=== PATIENT | male | born 1935 | race Caucasian/White ===

== ENCOUNTER 2017-03-27 19:38 | Emergency (ER) | payer MEDICARE, OTHER ==
--- NOTE | 2017-03-27 20:34 | ERNOTE ---
Upper Extremity HPI - Narrative Date of Service: 03/27/17 - General Extremities Pain Location: wrist: left - swelling and pain Source: patient, family Exam Limitations: no limitations - Immun/Allergies/Home Medications Immunizations: IMMUNIZATION HX Immunizations Up to Date Yes History of Influenza Vaccine Yes Hx Pneumococcal Vaccination Yes Allergies/Adverse Reactions: Allergies Allergy/AdvReac Type Severity Reaction Status Date / Time oxycodone Allergy Verified 03/27/17 19:49 Home Medications: HOME MEDICATIONS Albuterol Sulfate [Proair Hfa] 2 puff IH TID PRN 09/10/15 [Last Taken Unknown] Budesonide/Formoterol Fumarate [Symbicort 160-4.5 Mcg Inhaler] 2 puff IH BID [Last Taken Unknown] Celecoxib [Celebrex] 200 mg PO DAILY 09/10/15 [Last Taken Unknown] Esomeprazole Magnesium [Nexium] 40 mg PO DAILY 09/10/15 [Last Taken Unknown] Lactulose [Enulose] 30 ml PO BID #1800 ml 09/10/15 [Last Taken Unknown] Mucinex 09/10/15 [Last Taken Unknown] predniSONE [Prednisone] 10 mg PO DAILY #6 tablet 03/27/17 [Last Taken Unknown] - History of Present Illness Narrative: Pt did some yard work last Friday but did not have any symptoms. Friday he had some mild swelling in his wrist and took an "muscle relaxer" and it went down. Today he woke up with swelling and erythema of the wrist and has tried ice without improvement. Occurred: this morning Severity: moderate Method of Injury: Reports: no apparent injury Modifying Factors - (Worsens): Reports: movement Associated Symptoms: Reports: weakness - due to pain. Denies: tingling Other Injuries: Reports: none Review of Systems - Review of Systems Constitutional: Absent: recent illness EYE: Present: no symptoms reported ENT: Present: no symptoms reported Respiratory: Absent: shortness of breath Cardiology: Absent: chest pain Gastrointestinal/Abdominal: Present: no symptoms reported Genitourinary: Present: no symptoms reported Musculoskeletal: Present: See HPI Skin: Present: See HPI, change in color Neurological: Present: no symptoms reported Endocrine: Present: no symptoms reported Hematologic/Lymphatic: Present: no symptoms reported Psych: Present: no symptoms reported - Patient's Past Medical History Patient History - Medical: Arthritis, GERD, Other Patient History - Cardiac/Respiratory: COPD Patient History - Cancer: No Hx of Cancer Patient History - Surgical Procedures: Other Patient History - Other: None - Social History Living Situations: home Abuse History: No History of abuse Psych History: Hx of Depression Smoking Status: Former smoker Have you smoked in the past 12 months: No Do you dip or chew tobacco: No Alcohol Use: none Drug Use: none - Immunizations Immunizations Up to Date: Yes Hx Pneumococcal Vaccination: Yes History of Influenza Vaccine: Yes Physical Exam - Physical Exam General Appearance: Present: wd/wn, alert, no apparent distress Head Exam: Present: normal inspection, no evidence of injury Eye Exam: Normal inspection: bilateral Ears, Nose, Throat: Present: normal ENT inspection Neck: Present: normal inspection, nontender Respiratory: Present: no respiratory distress, no accessory muscle use Extremity Exam: Present: normal except - - left wrist erythematous and tender, ROM 5-10 Degrees with pain in any direction Neurological Exam: Present: alert, oriented, normal mood/affect, motor weakness - in hand that appears to be due to pain. Skin Exam: Present: other - erythema left wrist ED Progress - Results and Orders Patient's Lab Results:: I have reviewed the patient's lab results. Results and Orders: Laboratory Tests 03/27/17 03/27/17 03/27/17 20:45 20:45 20:45 WBC 9.9 Hgb 13.7 Hct 40.9 L Plt Count 267 ESR 29 H Sodium 136 Potassium 4.2 Chloride 100 Carbon Dioxide 27.2 BUN 26 H Creatinine 0.81 BUN/Creatinine Ratio 32.1 H Random Glucose 111 H Uric Acid 5.0 Calcium 8.4 C-Reactive Prot, Quant 2.5 H - Vital Signs Patient's Vital Signs:: I have reviewed the patient's vital signs. Vital Signs: Vital Signs 03/27/17 03/27/17 19:38 19:51 Temperature 37.5 C Pulse Rate 118 H Respiratory 22 H Rate Blood Pressure 132/72 152/88 O2 Sat by Pulse 95 Oximetry - X-Ray X-Ray #1 X-Ray: wrist - left Interpretation: Reviewed by me X-ray Comments: FINDINGS/IMPRESSION: 1. There is ulnar minus variant, and disproportionate sclerosis of the lunate. 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 Correlate clinically, and consider follow-up by routine MRI of the wrist, which may offer a more definitive diagnosis. 2. Lateral image demonstrates curvilinear lucency overlying the dorsal aspect of the triquetrum. Consider potential injury. 3. There is dysmorphic appearance of the proximal pole of the scaphoid, with increased density which could also represent avascular necrosis versus development variant. 4. Dysmorphic appearance of the distal radius/radial styloid, with adjacent soft tissue swelling noted. There is radiocarpal joint degenerative changes. There is also chondrocalcinosis projecting over the region of the triangular fibrocartilage as well as within the radiocarpal joint. Correlate clinically for calcium pyrophosphate deposition disease arthropathy. 5. Soft tissue swelling noted along the radial and dorsal aspects of the wrist. Consider possible tenosynovitis or tendinopathy, versus potential ligamentous injury. Also consider localized cellulitis/infection. 6. Incidental note of degenerative changes of the second and third metacarpophalangeal joints. Electronically signed by Brea Day M.D.. - Progress/Reassessment Chief Complaint: Hand Injury/Pain Progress:: Improved Departure Clinical Impression: Joint pain in fingers of left hand - Departure Disposition: Home Follow Up Needed Condition: Good Instructions: Arthritis Additional Instructions: See your regular doctor in 5-7 days if not improving. See your regular doctor in 3-4 weeks if your symptoms improve to repeat your uric acid level. Referrals: Lincoln Amaya MD [Primary Care Provider] - Prescriptions: predniSONE [Prednisone] 10 mg PO DAILY #6 tablet
[2017-03-27 20:46] LABS: Hematocrit 40.9 % (42.0-52.0); Hemoglobin 13.7 gm/dL (13.5-18.0); Mean Cell Volume 88.5 fl (78-100); Mean Corpuscular Hemoglobin 29.7 pg (27-31); Mean Corpuscular Hgb Conc 33.5 g/dl (32-36); Mean Platelet Volume 8.7 fl (6.0-9.5); Neutrophil # 7.2 K/mm3 (1.3-6.0); Neutrophil % 72.2 % (42-75.0); Platelet Count 267 K/mm3 (150-450); Red Blood Count 4.62 M/mm3 (4.7-6.0); Red Cell Distribution Width 14.9 % (11.5-14.0); White Blood Count 9.9 K/mm3 (4.0-10.5)
[2017-03-27 20:57] LABS: BUN/Creatinine Ratio 32.1 (9.0-21.6); CRP 2.5 mg/dL (0.0-0.9); Calcium * 8.4 mg/dL (7.9-10.9); Carbon Dioxide 27.2 mmol/L (24-32.6); Estimated Creat Clear 76.3; Potassium 4.2 mmol/L (3.4-4.6)
[2017-03-27] MEDS ORDERED: KETOROLAC TROMETHAMINE 60 MG/2 ML VIAL IM ONE (21:10)
[2017-03-27 21:15] VITALS: BP 142/88
[2017-03-27] MEDS ORDERED: predniSONE 20 MG TABLET PO ONE (21:58)
[2017-03-27] MEDS ORDERED: predniSONE 20 MG TABLET ONE (22:02)
== END 2017-03-27 22:00 | disposition home or self-care (01) ==
LOC: ER 19:38
DX: M25.542 Pain in joints of left hand (principal); Z87.891 Personal history of nicotine dependence

== ENCOUNTER 2020-01-08 20:37 | Observation (INO) ==
--- NOTE | 2020-01-08 20:46 | ERNOTE ---
Trauma/Assault HPI - General Stated Complaint: fall. rib pain Time Seen by Provider: 01/08/20 20:44 Source: patient, RN notes reviewed Exam Limitations: no limitations - Immun/Allergies/Home Medications Immunizations: IMMUNIZATION HX Immunizations Up to Date Yes History of Influenza Vaccine Yes Hx Pneumococcal Vaccination Yes Allergies/Adverse Reactions: Allergies oxycodone Allergy (Verified 01/08/20 20:45) Hives Home Medications: HOME MEDICATIONS Albuterol Sulfate [Proair Hfa] 2 puff INHALATION TID PRN 09/10/15 [Last Taken Unknown] Budesonide/Formoterol Fumarate [Symbicort 160-4.5 Mcg Inhaler] 2 puff INHALATION DAILY 09/10/15 [Last Taken Unknown] Celecoxib [Celebrex] 200 mg PO DAILY 09/10/15 [Last Taken Unknown] Esomeprazole Magnesium [Nexium] 20 mg PO DAILY 09/10/15 [Last Taken Unknown] Furosemide [Lasix] 20 mg PO DAILY 05/25/18 [Last Taken Unknown] guaifenesin 600 mg tablet, extended release 12 hr 600 mg PO TID tab 09/29/19 [Last Taken Unknown] Azithromycin 500 mg PO MOWEFR 01/08/20 [Last Taken Unknown] Ipratropium/Albuterol Sulfate [Iprat-Albut 0.5-3(2.5) mg/3 ml] 3 ml INHALATION BID 01/08/20 [Last Taken Unknown] Lactulose [Enulose] 40 ml PO DAILY PRN 01/08/20 [Last Taken Unknown] - History of Present Illness Narrative: Patient is 84-year-old white male with past medical history significant for severe COPD, chronic respiratory failure (on 3 L nasal cannula at home), reflux disease with Stephen plundoplication states he has had some increased dizziness last week, but today he was bending over to tend to his cat became very dizzy upon standing up and fell landing on wooden chair on his right rib cage. He had immediate pain which was unrelieved with Tylenol so came to the ER for further evaluation and treatment. He denies any recent fevers or chills, but has had slight increased shortness of breath or dyspnea on exertion x 48hrs, without any increase in his productive cough. He has no cardiac history and takes no medicines for hypertension. He does state he has persistent tachycardia due to his COPD. He has been taking his medicines as prescribed. He denies any increase in his reflux symptoms, black tarry stools or hematochezia. He does state he has had more leg cramps lately when walking, Denies increased lower extremity edema though. He denies any ill contacts or exposures. He denies any urinary symptoms. Location Occurred: Reports: home Pain Location: Reports: chest Method of Injury: Reports: fall Severity: moderate, severe Modifying Factors - (Improves): Reports: immobilization, rest Modifying Factors - (Worsens): Reports: movement, other - Deep breath Loss of Consciousness: Reports: no loss of consciousness Associated Symptoms - Trauma: Reports: dizziness, lightheadedness, shortness of breath. Denies: headache, confusion, seizures, slurred speech, trouble walking, vision changes, neck pain, chest pain, abdominal pain, nausea, muscle spasms Review of Systems - Review of Systems Constitutional: Absent: fever, chills EYE: Present: no symptoms reported ENT: Present: no symptoms reported Respiratory: Present: shortness of breath. Absent: cough, orthopnea, wheezing Cardiology: Present: chest pain, claudication. Absent: palpitations, syncope, edema Gastrointestinal/Abdominal: Absent: nausea, vomiting, diarrhea, abdominal pain Genitourinary: Present: no symptoms reported Musculoskeletal: Present: no symptoms reported Skin: Present: no symptoms reported Neurological: Present: dizziness/light-headedness, weakness. Absent: anxiety, depressed, emotional problems, headache Endocrine: Absent: excessive sweating, intolerance to heat, intolerance to cold, increased thirst, increased urine Hematologic/Lymphatic: Absent: easy bruising, easy bleeding Psych: Absent: anxiety, depressed Medical History (Last Updated 01/08/20 @ 23:14 by Richard Li MD) Chronic respiratory failure with hypoxia, on home O2 therapy on 3LNC at home Acid reflux Onset Date: Unknown Arthritis Onset Date: Unknown COPD (chronic obstructive pulmonary disease) Onset Date: Unknown Surgical History: Surgical History (Last Reviewed 01/08/20 @ 21:01 by Richard Li MD) History of Dixon fundoplication Onset Date: ~2005 [facility] History of back surgery Onset Date: Unknown [facility] History of cataract surgery Onset Date: Unknown bilateral History of prostate surgery Onset Date: Unknown Dr Coelho-"green light surgery" History of surgery on arm Onset Date: Unknown left ulnar History of throat surgery Onset Date: Unknown larynx Hx of cholecystectomy Onset Date: ~2006 [facility] Family History: Family History (Last Reviewed 01/08/20 @ 21:01 by Richard Li MD) Father , age 64-MVA Cancer liver ca-age 64 Mother , age 65-heart failure Heart disease Other No pertinent family history Social History: (Last Reviewed 01/08/20 @ 21:01 by Richard Li MD) Social History: Marital status: / household members: none number of children: 4 current occupational status: retired Service: Yes branch: [employer] dates of service: [id number] Tobacco: Smoking Status: Former smoker Alcohol: alcohol intake: never Substance Use: substance use type: does not use Dietary Habits: caffeine: Yes Personal Safety: victim of physical abuse: No victim of emotional abuse: No Physical Exam - Physical Exam General Appearance: Present: wd/wn, alert, mild distress, moderate distress, thin Head Exam: Present: normal inspection, no evidence of injury Eye Exam: Normal inspection: bilateral, PERRL: bilateral, EOMI: bilateral Ears, Nose, Throat: Present: normal except -, dry mucous membranes Neck: Present: normal inspection, supple Respiratory: Present: no respiratory distress, normal breath sounds, no accessory muscle use, lungs clear, chest tenderness - Tenderness over the fifth sixth and seventh ribs on the right., expiration (prolonged) Cardiovascular/Chest: Present: no murmur, normal peripheral pulses, tachycardia Gastrointestinal/Abdominal: Present: normal bowel sounds, nondistended, soft, no organomegaly, tenderness - Right upper quadrant Back Exam: Present: normal inspection Extremity Exam: Present: normal inspection, no edema, calf tenderness - Bilaterally Neurological Exam: Present: alert, oriented, normal mood/affect, no motor/sensory deficits Skin Exam: Present: normal color, warm/dry Detailed Trauma Exam Best Eye Response (Lokesh): (4) open spontaneously Best Verbal Response (Lokesh): (5) oriented Best Motor Response (Lokesh): (6) obeys commands Lokesh Total: 15 General Appearance: Present: alert Neurological Exam: Present: alert, oriented x 4, no motor/sensory deficits, motion pictures cartoonist II-XII nml as tested, no motor/sensory deficit Neck Exam: Present: non-tender, full range of motion - C-Spine cleared by: Neg history & exam - T, L-Spine cleared by: Neg hx and exam Progress - Results and Orders Patient's Lab Results:: I have reviewed the patient's lab results. Results and Orders: Laboratory Tests 01/08/20 20:55 WBC 16.1 H RBC 5.23 Hgb 14.8 Hct 45.9 MCV 87.8 MCH 28.3 MCHC 32.2 RDW 15.8 H Plt Count 376 MPV 8.6 Immature Gran % (Auto) 0.80 H Immature Gran # (Auto) 0.13 H Neutrophils % 80.7 H Lymphocytes % 9.4 L Monocytes % 8.7 Eosinophils % 0.2 Basophils % 0.2 Nucleated RBC % 0.0 Neutrophils # 13.0 H Lymphocytes # 1.51 Monocytes # 1.4 H Eosinophils # 0.0 Absolute Basophils 0.0 Laboratory Tests 01/08/20 20:55 Troponin I Less than 0.017 C-Reactive Prot, Quant 25.5 H D-dimer is 5.5, will get a CTA due to concerns for possible PE given his leg claudications and increased shortness of breath. Laboratory Tests 01/08/20 21:00 Sodium 132 Plasma Sodium 132 Potassium 4.4 Chloride 96 L Carbon Dioxide 29.4 Anion Gap 11.0 BUN 21 Creatinine 0.77 Est GFR (Non-Af Amer) 103 BUN/Creatinine Ratio 27.3 H Random Glucose 124 H Calcium 9.3 Calcium Adj for Albumin 9.9 Total Bilirubin 0.5 AST 21 ALT 27 Alkaline Phosphatase 143 Total Protein 8.2 Albumin 2.8 L Laboratory Tests 01/08/20 21:55 Urine Color Yellow Urine Appearance Clear Urine pH 5.5 Ur Specific [place] >=1.030 Urine Protein 30 H Urine Glucose (UA) Negative Urine Ketones 5 Urine Blood 5 H Urine Nitrate Negative Urine Bilirubin Negative Prot Sulfosalicylic Acd 1+ Urine Urobilinogen Normal Ur Leukocyte Esterase Negative Urine RBC 0-5 Urine WBC None seen Ur Epithelial Cells 0-5 Urine Bacteria None seen Specific gravity is 30 showing some dehydration patient. We will give him some IV fluids after his CTA for renal protection as well as hydration. Laboratory Tests 01/08/20 01/08/20 21:00 21:00 ESR 83 H D-Dimer 5.56 H - Vital Signs Patient's Vital Signs:: I have reviewed the patient's vital signs. Vital Signs: Vital Signs 01/08/20 20:42 Temperature 37.3 C Pulse Rate 119 H Respiratory Rate 27 H Blood Pressure 161/88 H O2 Sat by Pulse Oximetry 25 L - EKG EKG #1 EKG: NSR - Sinus tachycardia, no ST T wave changes EKG read: Interp. by me - X-Ray X-Ray #1 X-Ray: chest Interpretation: Interp. by me X-ray Comments: Patient has a right lower lobe infiltrate. Also has a right middle lobe consolidation concerning for a mass. X-Ray #2 X-Ray: ribs Interpretation: Interp. by me X-ray Comments: No acute fracture seen on rib x-ray - Progress/Reassessment Chief Complaint: Fall Progress Note-Subjective: 01/08/20 22:42 Patient continues to have pain so we will re-dose is IV morphine as he seems to be tolerating it well and it is helping his pain. 01/08/20 23:09 Patient states pain is controlled at this time. - Transfer of Care Expected Disposition: Admit Plan - Plan Plan: Patient with right rib tenderness concern for possible rib fracture. We will do x-ray of his ribs. Also patient is tachycardic with dizziness, with his leg pain and claudications will make sure he does not have a DVT contributing to this. He denies any worsening of his COPD symptoms but he is more hypoxic than normal here in the ER. Keep him on O2 to keep his sats greater than 88%. We will give him some morphine for the pain, start off with a 1 mg dose and increasing as needed. Also check a UA to be sure there is no urinary tract infection and a chest x-ray to be sure there is no pneumonia. Check a CMP to be sure no electrolyte issues and a CBC to make sure his hemoglobin is stable. No distinct rib fracture seen. Given his elevated white count and elevated C-reactive protein and right lower lobe consolidation, would be concerned about right lower lobe pneumonia. Will give him a dose of IV Rocephin and azithromycin here in the ER. Given patient's continued right chest wall pain, requiring IV morphine for control, his right lower lobe pneumonia and persistent tachycardia despite some IV fluids and pain control feel he needs to at least be in the hospital for observation. If his heart rate persists greater than 100 he actually would meet criteria for inpatient. I spoke with Dr. Ruby who is agreeable to accept the patient for admission to observation at this time. Appreciate his help and support. I did mention that there was a hilar growth that is causing some blockage of his right upper lobe blood flow. I did not discuss with him possibility of this being a cancer. His daughter was present at the time. I did mention to them that this will need further work-up on an outpatient basis. Departure Clinical Impression: Dizziness, Dehydration, Hilar mass Contusion of rib on right side Qualifiers: Encounter type: initial encounter Qualified Code(s): S20.211A - Contusion of right front wall of thorax, initial encounter RLL pneumonia Qualifiers: Pneumonia type: due to unspecified organism Qualified Code(s): J18.9 - Pneumonia, unspecified organism Chronic respiratory failure Qualifiers: Respiratory failure complication: hypoxia Qualified Code(s): J96.11 - Chronic respiratory failure with hypoxia - Departure Disposition: Still a patient Condition: Stable Referrals: Lincoln Amaya MD [Primary Care Provider] - Critical Care Time - Critical Care Critical Time Spent:: No
[2020-01-08] MEDS ORDERED: MORPHINE SULFATE 4 MG/ML SYRG IV PRN (20:56)
[2020-01-08 21:01] LABS: Hematocrit 45.9 % (42.0-52.0); Hemoglobin 14.8 gm/dL (13.5-18.0); Mean Cell Volume 87.8 fl (78-100); Mean Corpuscular Hemoglobin 28.3 pg (27-31); Mean Corpuscular Hgb Conc 32.2 g/dl (32-36); Mean Platelet Volume 8.6 fl (8-11.3); Neutrophil % 80.7 % (42-75.0); Platelet Count 376 K/mm3 (150-450); Red Blood Count 5.23 M/mm3 (4.7-6.0); Red Cell Distribution Width 15.8 % (11.5-14.0); White Blood Count 16.1 K/mm3 (4.0-10.5)
[2020-01-08] MEDS ORDERED: MORPHINE SULFATE 2 MG/ML DISP.SYRIN IV ONE ×2 (21:16→22:40)
[2020-01-08 21:21] LABS: Troponin I Less than 0.017 ng/mL (0.00-0.10)
[2020-01-08 21:26] LABS: CRP 25.5 mg/dL (0.0-0.9)
[2020-01-08] MEDS ORDERED: cefTRIAXone SODIUM 1,000 MG/100 ML BAG IV ONE (21:30)
[2020-01-08] MEDS ORDERED: AZITHROMYCIN 250 MG TABLET PO ONE (21:30)
[2020-01-08 22:01] LABS: Urine Bilirubin Negative (NEGATIVE); Urine Ketone 5 mg/dL (NEGATIVE); Urine Nitrite Negative (NEGATIVE); Urine Protein 30 mg/dL (NEGATIVE); Urine Specific Gravity >=1.030 SP.GR. (1.005-1.030); Urine Urobilinogen Normal (NORMAL); Urine pH 5.5 pH (5.0-7.0)
[2020-01-08 22:07] LABS: Urine Appearance Clear (CLEAR); Urine Bacteria None Seen; Urine Blood 5 /ul (NEGATIVE); Urine Color Yellow; Urine RBC 0-5 /hpf (0-5); Urine WBC None Seen /hpf (0-5)
[2020-01-08 22:08] LABS: Albumin * 2.8 gm/dl (3.4-5.0); BUN/Creatinine Ratio 27.3 (9.0-21.6); Bilirubin, Total 0.5 mg/dL (0.0-1.1); Ca. Corrected For Albumin 9.9 mg/dL (8.4-10.2); Calcium * 9.3 mg/dL (7.9-10.9); Carbon Dioxide 29.4 mmol/L (24-32.6); Potassium 4.4 mmol/L (3.4-4.6); Total Protein 8.2 gm/dL (6.2-8.2)
[2020-01-08] MEDS ORDERED: RINGER'S SOLUTION,LACTATED 1,000 ML IV ONE (22:13)
[2020-01-08] MEDS ORDERED: ACETAMINOPHEN 325 MG TABLET PO PRN (23:26)
[2020-01-08] MEDS ORDERED: ALBUTEROL SULFATE/IPRATROPIUM 3 ML NEBU IH SCH (23:30)
[2020-01-08] MEDS ORDERED: ACETYLCYSTEINE 200 MG/ML VIAL IH SCH (23:45)
[2020-01-09] MEDS: MORPHINE SULFATE 2 MG/ML DISP.SYRIN IV PRN ×2 (01:09→05:57)
[2020-01-09] MEDS ORDERED: ALBUTEROL SULFATE/IPRATROPIUM 3 ML NEBU IH ONE (01:37)
[2020-01-09] MEDS: ALBUTEROL SULFATE/IPRATROPIUM 3 ML NEBU IH SCH ×6 (01:39→10:05)
[2020-01-09] MEDS ORDERED: ACETYLCYSTEINE 200 MG/ML VIAL ONE (05:37)
[2020-01-09] MEDS: ACETYLCYSTEINE 200 MG/ML VIAL IH SCH ×2 (05:41→06:09)
[2020-01-09] MEDS ORDERED: MORPHINE SULFATE 2 MG/ML DISP.SYRIN IV PRN (07:15)
[2020-01-09] MEDS ORDERED: SENNOSIDES/DOCUSATE SODIUM 1 TAB TABLET PO SCH (09:00)
--- NOTE | 2020-01-09 12:00 | HPDIS ---
Chief Complaint - Chief Complaint Date of Service: 01/09/20 Time of Service: 11:14 Chief Complaint: Dizzy and fall History of Present Illness: Gus is an 84 yo male with Chronic respiratory failure on 3lpm of oxygen with activity secondary to COPD. He has been having dizzy episodes lately and had one of these while bending over. This caused him to fall and hit his ribs on a chair. He was having rib pain and presented to the [facility] ER. He had imaging that showed no rib fractures, but did show a right lung consolidation either pneumonia or lung mass on Chest CT. He had leukocytosis of 16k. He follows with Dr. Muhammad at [facility]. Medical History (Last Reviewed 01/09/20 @ 00:37 by Rula Stone RN) Chronic respiratory failure with hypoxia, on home O2 therapy on 3LNC at home Acid reflux Onset Date: Unknown Arthritis Onset Date: Unknown COPD (chronic obstructive pulmonary disease) Onset Date: Unknown Surgical History: Surgical History (Last Reviewed 01/09/20 @ 00:37 by Rula Stnoe RN) History of Dixon fundoplication Onset Date: ~2005 [facility] History of back surgery Onset Date: Unknown lumbar. Dr. Tong-once. [facility]-once History of cataract surgery Onset Date: Unknown bilateral History of prostate surgery Onset Date: Unknown Dr Coelho-"green light surgery" History of surgery on arm Onset Date: Unknown left ulnar History of throat surgery Onset Date: Unknown larynx Hx of cholecystectomy Onset Date: ~2006 [facility] Family History: Family History (Last Reviewed 01/09/20 @ 00:37 by Rula Stone RN) Father , age 64-MVA Cancer liver ca-age 64 Mother , age 65-heart failure Heart disease Other No pertinent family history Social History: (Last Reviewed 01/09/20 @ 00:37 by Rula Stone RN) Social History: Marital status: / household members: none number of children: 4 current occupational status: retired Service: Yes branch: [employer] dates of service: [id number] Tobacco: Smoking Status: Former smoker Alcohol: alcohol intake: never Substance Use: substance use type: does not use Dietary Habits: caffeine: Yes Personal Safety: victim of physical abuse: No victim of emotional abuse: No Review Of Systems (GEN) - Review of Systems Generalized/Overall Review: Present: Weakness. Absent: Chills, Fever EENTM: Present: No Symptoms Reported Respiratory: Present: Cough. Absent: Shortness of Breath Cardiac: Absent: Chest Pain, Edema, Palpitations Abdominal: Absent: Nausea, Vomiting Genitourinary: Present: No Symptoms Reported Musculoskeletal: Present: Other - rib pain Neurological: Present: No Symptoms Reported Skin: Present: No Symptoms Reported Immunizations: IMMUNIZATION HX Immunizations Up to Date Yes History of Influenza Vaccine Yes Hx Pneumococcal Vaccination Yes Allergies/Adverse Reactions: Allergies Allergy/AdvReac Type Severity Reaction Status Date / Time naproxen [From Aleve] Allergy Hives Verified 01/09/20 00:38 oxycodone Allergy Hives Verified 01/08/20 20:45 Home Medications: HOME MEDICATIONS Albuterol Sulfate [Proair Hfa] 2 puff INHALATION TID PRN 09/10/15 [Last Taken 01/08/20 17:00] Budesonide/Formoterol Fumarate [Symbicort 160-4.5 Mcg Inhaler] 2 puff INHALATION BID 09/10/15 [Last Taken 01/08/20 06:00] Celecoxib [Celebrex] 200 mg PO DAILY 09/10/15 [Last Taken 01/08/20 10:00] Esomeprazole Magnesium [Nexium] 20 mg PO DAILY 09/10/15 [Last Taken 01/08/20 06:00] Furosemide [Lasix] 20 mg PO DAILY PRN 05/25/18 [Last Taken Unknown] guaifenesin 600 mg tablet, extended release 12 hr 600 mg PO TID tab 09/29/19 [Last Taken 01/08/20 19:00] Azithromycin 500 mg PO MOWEFR 01/08/20 [Last Taken 01/07/20] Ipratropium/Albuterol Sulfate [Iprat-Albut 0.5-3(2.5) mg/3 ml] 3 ml INHALATION BID 01/08/20 [Last Taken 01/08/20 17:00] Lactulose [Enulose] 40 ml PO DAILY PRN 01/08/20 [Last Taken 01/08/20 06:00] Cefdinir [Omnicef] 300 mg PO Q12H #20 cap 01/09/20 [Last Taken Unknown] Exam - Exam Vital Signs: Vital Signs - Last Taken Temp 37.2 C 01/09/20 10:30 Pulse 107 H 01/09/20 10:30 Resp 24 H 01/09/20 10:30 BP 113/66 01/09/20 10:30 Pulse Ox 99 01/09/20 10:30 Constitutional: Present: Alert, Oriented x3, Cooperative ENT Exam: Present: hearing grossly normal Eye Exam: bilateral eye: normal inspection Respiratory: Present: lungs clear, normal breath sounds, no respiratory distress Cardiovascular/Chest: Present: regular rate, rhythm, no edema, no murmur Peripheral Pulses: radial (R): 2+, radial (L): 2+ Abdomen: Present: Normal bowel sounds, soft, nontender, nondistended Skin Exam: Present: normal color, warm/dry, no cyanosis Appearance: Present: appropriate appearance, appropriate insight Eye contact: Present: cooperative, good eye contact, normal speech Thoughts: Present: normal thought pattern, no apparent hallucination Diagnostic Studies: Abnormal Lab Results 01/08/20 01/08/20 01/08/20 Range/Units 20:55 20:55 21:00 WBC 16.1 H (4.0-10.5) K/mm3 RDW 15.8 H (11.5-14.0) % Immature Gran % (Auto) 0.80 H (0.001-0.429) % Immature Gran # (Auto) 0.13 H (0.000-0.0310) K/mm3 Neutrophils % 80.7 H (42-75.0) % Lymphocytes % 9.4 L (20-51) % Neutrophils # 13.0 H (1.3-6.0) K/mm3 Monocytes # 1.4 H (0.0-1.0) k/mm3 ESR (0-10) mm/hr D-Dimer 5.56 H (0.19-0.49) ug/mL Chloride (97-106) mmol/L BUN/Creatinine Ratio (9.0-21.6) Random Glucose (70-110) mg/dL C-Reactive Prot, Quant 25.5 H (0.0-0.9) mg/dL Albumin (3.4-5.0) gm/dl Urine Protein (NEGATIVE) mg/dL Urine Blood (NEGATIVE) /ul 01/08/20 01/08/20 01/08/20 Range/Units 21:00 21:00 21:55 WBC (4.0-10.5) K/mm3 RDW (11.5-14.0) % Immature Gran % (Auto) (0.001-0.429) % Immature Gran # (Auto) (0.000-0.0310) K/mm3 Neutrophils % (42-75.0) % Lymphocytes % (20-51) % Neutrophils # (1.3-6.0) K/mm3 Monocytes # (0.0-1.0) k/mm3 ESR 83 H (0-10) mm/hr D-Dimer (0.19-0.49) ug/mL Chloride 96 L (97-106) mmol/L BUN/Creatinine Ratio 27.3 H (9.0-21.6) Random Glucose 124 H (70-110) mg/dL C-Reactive Prot, Quant (0.0-0.9) mg/dL Albumin 2.8 L (3.4-5.0) gm/dl Urine Protein 30 H (NEGATIVE) mg/dL Urine Blood 5 H (NEGATIVE) /ul Microbiology 01/09/20 05:30 Sputum Culture - Preliminary Expectorate Sputum Laboratory Results WBC 16.1 K/mm3 (4.0-10.5) H 01/08/20 20:55 RBC 5.23 M/mm3 (4.7-6.0) 01/08/20 20:55 Hgb 14.8 gm/dL (13.5-18.0) 01/08/20 20:55 Hct 45.9 % (42.0-52.0) 01/08/20 20:55 MCV 87.8 fl (78-100) 01/08/20 20:55 MCH 28.3 pg (27-31) 01/08/20 20:55 MCHC 32.2 g/dl (32-36) 01/08/20 20:55 RDW 15.8 % (11.5-14.0) H 01/08/20 20:55 Plt Count 376 K/mm3 (150-450) 01/08/20 20:55 MPV 8.6 fl (8-11.3) 01/08/20 20:55 Immature Gran % (Auto) 0.80 % (0.001-0.429) H 01/08/20 20:55 Immature Gran # (Auto) 0.13 K/mm3 (0.000-0.0310) H 01/08/20 20:55 Neutrophils % 80.7 % (42-75.0) H 01/08/20 20:55 Lymphocytes % 9.4 % (20-51) L 01/08/20 20:55 Monocytes % 8.7 % (0.0-9) 01/08/20 20:55 Eosinophils % 0.2 % (0.0-3.0) 01/08/20 20:55 Basophils % 0.2 % (0.0-1.0) 01/08/20 20:55 Nucleated RBC % 0.0 k/mm3 (0-1) 01/08/20 20:55 Neutrophils # 13.0 K/mm3 (1.3-6.0) H 01/08/20 20:55 Lymphocytes # 1.51 k/mm3 (1.5-3.5) 01/08/20 20:55 Monocytes # 1.4 k/mm3 (0.0-1.0) H 01/08/20 20:55 Eosinophils # 0.0 k/mm3 (0.0-0.7) 01/08/20 20:55 Absolute Basophils 0.0 k/mm3 (0.0-0.1) 01/08/20 20:55 ESR 83 mm/hr (0-10) H 01/08/20 21:00 D-Dimer 5.56 ug/mL (0.19-0.49) H 01/08/20 21:00 Sodium 132 mmol/L (132-142) 01/08/20 21:00 Plasma Sodium 132 mmol/L (130-142) 01/08/20 21:00 Potassium 4.4 mmol/L (3.4-4.6) 01/08/20 21:00 Chloride 96 mmol/L (97-106) L 01/08/20 21:00 Carbon Dioxide 29.4 mmol/L (24-32.6) 01/08/20 21:00 Anion Gap 11.0 mmol/L (6.8-13.8) 01/08/20 21:00 BUN 21 mg/dL (6-23) 01/08/20 21:00 Creatinine 0.77 mg/dL (0.4-1.4) 01/08/20 21:00 Est GFR (Non-Af Amer) 103 mL/min (60-130) 01/08/20 21:00 BUN/Creatinine Ratio 27.3 (9.0-21.6) H 01/08/20 21:00 Random Glucose 124 mg/dL (70-110) H 01/08/20 21:00 Lactic Acid, Venous 1.2 mmol/L (0.4-2.0) 01/08/20 21:00 Calcium 9.3 mg/dL (7.9-10.9) 01/08/20 21:00 Calcium Adj for Albumin 9.9 mg/dL (8.4-10.2) 01/08/20 21:00 Total Bilirubin 0.5 mg/dL (0.0-1.1) 01/08/20 21:00 AST 21 U/L (0-48) 01/08/20 21:00 ALT 27 U/L (19-67) 01/08/20 21:00 Alkaline Phosphatase 143 U/L (50-170) 01/08/20 21:00 Troponin I Less than 0.017 ng/mL (0.00-0.10) 01/08/20 20:55 C-Reactive Prot, Quant 25.5 mg/dL (0.0-0.9) H 01/08/20 20:55 Total Protein 8.2 gm/dL (6.2-8.2) 01/08/20 21:00 Albumin 2.8 gm/dl (3.4-5.0) L 01/08/20 21:00 Urine Color Yellow 01/08/20 21:55 Urine Appearance Clear (CLEAR) 01/08/20 21:55 Urine pH 5.5 pH (5.0-7.0) 01/08/20 21:55 Ur Specific Lincoln >=1.030 SP.GR. (1.005-1.030) 01/08/20 21:55 Urine Protein 30 mg/dL (NEGATIVE) H 01/08/20 21:55 Urine Glucose (UA) Negative mg/dL (NEGATIVE) 01/08/20 21:55 Urine Ketones 5 mg/dL (NEGATIVE) 01/08/20 21:55 Urine Blood 5 /ul (NEGATIVE) H 01/08/20 21:55 Urine Nitrate Negative (NEGATIVE) 01/08/20 21:55 Urine Bilirubin Negative mg/dl (NEGATIVE) 01/08/20 21:55 Prot Sulfosalicylic Acd 1+ mg/dL (0) 01/08/20 21:55 Urine Urobilinogen Normal EU/dl (NORMAL) 01/08/20 21:55 Ur Leukocyte Esterase Negative /ul (NEGATIVE) 01/08/20 21:55 Urine RBC 0-5 /hpf (0-5) 01/08/20 21:55 Urine WBC None seen /hpf (0-5) 01/08/20 21:55 Ur Epithelial Cells 0-5 /hpf (0-5) 01/08/20 21:55 Urine Bacteria None seen (NONE) 01/08/20 21:55 Urine Culture Comments No culture indicated 01/08/20 21:55 Assessment/Plan - Narrative Narrative: Gus is an 84 yo male with right lower lobe mass like consolidation. He has productive cough and WBC of 16k indicating this may be pneumonia, but cancer is also a possibility. He was admitted on observation to initiate treatment for pneumonia and monitor how he does. Overnight he feels well and reports wanting to go home today. His vitals have been stable. He has oxygen to use at home with activity. He has not had any worsening of his chronic respiratory failure. I believe he could be treated for pneumonia as outpatient with the plans to follow up with chest xray sooner than the typical 2 months to see if there is improvement. If there is not improvement with this mass like consolidation than the likelihood that it is cancer becomes stronger and he will need to consider biopsy. He already has a scheduled appointment with Dr. Muhammad on January 18. He will keep this appointment. - Assessment/Plan (1) RLL pneumonia Problem: Acute Qualifiers: Pneumonia type: due to unspecified organism Qualified Code(s): J18.9 - Pneumonia, unspecified organism (2) Mass of lower lobe of right lung Problem: Acute (3) Contusion of rib on right side Problem: Acute Qualifiers: Encounter type: initial encounter Qualified Code(s): S20.211A - Contusion of right front wall of thorax, initial encounter (4) Chronic respiratory failure Problem: Chronic Qualifiers: Respiratory failure complication: hypoxia Qualified Code(s): J96.11 - Chronic respiratory failure with hypoxia (1) RLL pneumonia Problem: Acute Qualifiers: Pneumonia type: due to unspecified organism Qualified Code(s): J18.9 - Pneumonia, unspecified organism (2) Mass of lower lobe of right lung Problem: Acute (3) Contusion of rib on right side Problem: Acute Qualifiers: Encounter type: initial encounter Qualified Code(s): S20.211A - Contusion of right front wall of thorax, initial encounter (4) Chronic respiratory failure Problem: Acute Qualifiers: Respiratory failure complication: hypoxia Qualified Code(s): J96.11 - Chronic respiratory failure with hypoxia Date of Discharge:: 01/09/20 Hospital Course: Gus was admitted to observation for treatment of RLL pneumonia. He is feeling better today and request to go home. His vitals have been stable and he has chronic respiratory failure with oxygen at home with no exacerbation beyond his chronic condition. He feels well and requested discharge and I see no indication that he needs to stay. I will treat him initially as a consolidated pneumonia with cefdinir and azithromycin as outpatient. He should have a close follow up chest xray to see if there are signs of improvement in this mass like consolidation. He will then follow up with pulmonology as scheduled. If there is no improvement in chest xray he may need biopsy to further evaluate this mass. Procedures Performed: none Results and Findings: Pending Mircobiology Results 01/09/20 05:30 Expectorate Sputum Sputum Culture - Preliminary Lab Pending Results 01/08/20 20:55: WBC 16.1 H, RBC 5.23, Hgb 14.8, Hct 45.9, MCV 87.8, MCH 28.3, MCHC 32.2, RDW 15.8 H, Plt Count 376, MPV 8.6, Immature Gran % (Auto) 0.80 H, Immature Gran # (Auto) 0.13 H, Neutrophils % 80.7 H, Lymphocytes % 9.4 L, Monocytes % 8.7, Eosinophils % 0.2, Basophils % 0.2, Nucleated RBC % 0.0, Neutrophils # 13.0 H, Lymphocytes # 1.51, Monocytes # 1.4 H, Eosinophils # 0.0, Absolute Basophils 0.0 01/08/20 20:55: Troponin I Less than 0.017, C-Reactive Prot, Quant 25.5 H 01/08/20 21:00: D-Dimer 5.56 H 01/08/20 21:00: ESR 83 H 01/08/20 21:00: Sodium 132, Plasma Sodium 132, Potassium 4.4, Chloride 96 L, Carbon Dioxide 29.4, Anion Gap 11.0, BUN 21, Creatinine 0.77, Est GFR (Non-Af Amer) 103, BUN/Creatinine Ratio 27.3 H, Random Glucose 124 H, Calcium 9.3, Calcium Adj for Albumin 9.9, Total Bilirubin 0.5, AST 21, ALT 27, Alkaline Phosphatase 143, Total Protein 8.2, Albumin 2.8 L 01/08/20 21:00: Lactic Acid, Venous 1.2 01/08/20 21:55: Urine Color Yellow, Urine Appearance Clear, Urine pH 5.5, Ur Specific Lincoln >=1.030, Urine Protein 30 H, Urine Glucose (UA) Negative, Urine Ketones 5, Urine Blood 5 H, Urine Nitrate Negative, Urine Bilirubin Negative, Prot Sulfosalicylic Acd 1+, Urine Urobilinogen Normal, Ur Leukocyte Esterase Negative, Urine RBC 0-5, Urine WBC None seen, Ur Epithelial Cells 0-5, Urine Bacteria None seen, Urine Culture Comments No culture indicated Discharge Location: Home Disposition: Home self-care Condition: Stable Discharge Activity: Activity as tolerated Discharge Diet: General/regular food Referrals: Lincoln Amaya MD [Non Staff Physicians] - One Week Problem Oriented Discharge Instructions to Patient/Family: Community-Acquired Pneumonia, Adult, [id number] Prescriptions (Any new or edited meds): Cefdinir [Omnicef] 300 mg PO Q12H #20 cap Transmission Status: Pending to [facility] Complete Home Medications List: Complete Home Medication List: Albuterol Sulfate [Proair Hfa] 2 puff INHALATION TID PRN 09/10/15 Budesonide/Formoterol Fumarate [Symbicort 160-4.5 Mcg Inhaler] 2 puff INHALATION BID 09/10/15 Celecoxib [Celebrex] 200 mg PO DAILY 09/10/15 Esomeprazole Magnesium [Nexium] 20 mg PO DAILY 09/10/15 Furosemide [Lasix] 20 mg PO DAILY PRN 05/25/18 guaifenesin 600 mg tablet, extended release 12 hr 600 mg PO TID tab 09/29/19 Azithromycin 500 mg PO MOWEFR 01/08/20 Ipratropium/Albuterol Sulfate [Iprat-Albut 0.5-3(2.5) mg/3 ml] 3 ml INHALATION BID 01/08/20 Lactulose [Enulose] 40 ml PO DAILY PRN 01/08/20 Cefdinir [Omnicef] 300 mg PO Q12H #20 cap 01/09/20 Amb Orders for Discharge: Chest PA & Lateral * Time Frame: 01/17/20, Facility: [facility], Location: Radiology Forms: Patient Portal Registration
[2020-01-09 12:16] VITALS: BP 100/55
[2020-01-09] MEDS ORDERED: AZITHROMYCIN 250 MG TABLET PO SCH (21:00)
== END 2020-01-09 12:45 | disposition home or self-care (01) ==
LOC: MS 20:37 → ER 20:37 → MS 23:50
PROVIDERS: ADMIT Family Medicine; ATTEND Family Medicine
DX: J18.9 Pneumonia, unspecified organism; W01.190A Fall on same level from slipping, tripping and stumbling with subsequent striking against furniture, initial encounter; E86.0 Dehydration; R91.8 Other nonspecific abnormal finding of lung field; S20.211A Contusion of right front wall of thorax, initial encounter; Z99.81 Dependence on supplemental oxygen; J96.11 Chronic respiratory failure with hypoxia; Z87.891 Personal history of nicotine dependence; R42 Dizziness and giddiness
CPT/HCPCS: 36415; 71020; 71046; 71100; 71275; 80053; 81001; 83605; 84484; 85025; 85379; 85652; 86140; 87040; 87070; 87449; 93005; 94640; 94664; 96361; 96365; 96375; 96376; 99285; G0378; Q9967